=== PATIENT | female | born 1985 | race Caucasian/White ===

== ENCOUNTER 2018-04-20 15:02 | Emergency (ER) | payer SELFPAY ==
[~2018-04-20] VITALS: Ht 165.1 cm; Wt 75.0 kg
[~2018-04-20 15:02] MED LIST: BUSP10TA8 PO; KCL20 PO; LISI-363 PO; OXCA300T2 PO; PENI500T PO
[2018-04-20 15:24] VITALS: BP 141/90; PULSE 100; RESP 18; TEMP 99.5; O2SAT 100
--- NOTE | 2018-04-20 15:53 | PD ---
HPI Chief Complaint: Related Problem Time Seen by Provider: 15:53 Travel History International Travel<30 days: No Contact w/Intl Traveler<30days: No Traveled to known affect area: No History of Present Illness HPI 32-year-old female came to the emergency room with history of left adnexal pain and back pain for past couple days. Patient found out last week that she is . Her last menstrual cycle was March 17. Patient is A1. Patient also noticed some spotting. Spotting started yesterday. No aggravating or relieving factors identified for the pain. Patient is concerned about ectopic and hence came to the emergency room. Vital signs are stable. [facility] Past Medical History Narrative Medical List of her past medical, surgical, social and family history is reviewed from the nursing note. Bipolar Disorder: Yes Anxiety: Yes Depression: Yes Diminished Hearing: No Hypertension: Yes Immunizations Current: Yes ?: Menopausal: No : 3 Para: 2 Miscarriage: 1 : 0 Social History Alcohol Use: No Tobacco Use: Yes (1 PPD) Substance Use: Yes (CRACK, KLONOPIN, DILAUDID, IV DRUGS; LAST USE 05/25/2013) Allergies-Medications (Allergen,Severity, Reaction): Coded Allergies: No Known Allergies (Unverified Adverse Reaction, Unknown, 04/20/18) Comments No known drug allergies Reported Meds & Prescriptions Reported Meds & Active Scripts Active Reported Clonidine (Clonidine HCl) 0.1 Mg Tab 0.1 Mg PO TID Lisinopril 20 Mg Tab 20 Mg PO DAILY Narrative Medication List of her home medications reviewed from the nursing note Review of Systems Except as stated in HPI: all other systems reviewed are Neg Genitourinary: Positive: Pelvic Pain, Vaginal Bleeding Physical Exam Narrative GENERAL: Awake, alert, mild distress SKIN: Focused skin assessment warm/dry. HEAD: Atraumatic. Normocephalic. EYES: Pupils equal and round. No scleral icterus. No injection or drainage. ENT: No nasal bleeding or discharge. Mucous membranes pink and moist. NECK: Trachea midline. No JVD. CARDIOVASCULAR: Regular rate and rhythm. No murmur appreciated. RESPIRATORY: No accessory muscle use. Clear to auscultation. Breath sounds equal bilaterally. GASTROINTESTINAL: Abdomen soft, non-tender, nondistended. Hepatic and splenic margins not palpable. MUSCULOSKELETAL: No obvious deformities. No clubbing. No cyanosis. No edema. NEUROLOGICAL: Awake and alert. No obvious cranial nerve deficits. Motor grossly within normal limits. Normal speech. PSYCHIATRIC: Appropriate mood and affect; insight and judgment normal. Data Data Last Documented VS Orders Orders Ed Urine Pregnancytest Poc (04/20/18 16:06) [facility] Medical Decision Making Medical Screen Exam Complete: Yes Emergency Medical Condition: Yes Medical Record Reviewed: Yes Differential Diagnosis Ectopic , threatened , vaginal bleeding in early Narrative Course 5:27 PM patient was explained about the blood work that needs to be done especially beta-hCG titer to determine if an ultrasound could be done for this early to determine the location of the . I explained to the patient well and came out of the room. The nurse soon told me that patient did not want to wait for the blood test results. She wanted to leave. She was getting restless. She is in full capacity to make decisions for herself. She left AMA. Procedures EKG Prior to Arrival: No Disposition: 07 AGAINST MEDICAL ADVICE Condition: Serious Luis Miguel Guerrero MD Apr 20, 2018 15:53
[2018-04-20] MEDS ORDERED: CLON0.1T PO (15:54)
[2018-04-20] MEDS ORDERED: LISI-515 PO (15:54)
== END 2018-04-20 17:07 | disposition left against medical advice (07) ==
LOC: NEPD 15:02
DX: M54.9 Dorsalgia, unspecified (principal)
CPT/HCPCS: 84703; 99281

== ENCOUNTER 2018-10-10 15:22 | Observation (INO) ==
[2018-10-10 18:05] LABS: Baso % (Auto) 0.2 % (0.0-2.0); Eos # (Auto) 0.1 th/mm3 (0.0-0.4); Eos % (Auto) 1.1 % (0.0-4.0); Hematocrit 34.4 % (35.0-46.0); Lymph # (Auto) 2.2 th/mm3 (1.0-4.8); Lymph % (Auto) 21.6 % (9.0-44.0); Mean Corpuscular HGB Conc 34.8 % (32.0-36.0); Mean Corpuscular Hemoglobin 30.5 pg (27.0-34.0); Mean Corpuscular Volume 87.7 fL (80.0-100.0); Mean Platelet Volume 8.2 fL (7.0-11.0); Mono # (Auto) 0.5 th/mm3 (0.0-0.9); Mono % (Auto) 4.7 % (0.0-8.0); Neut # (Auto) 7.4 th/mm3 (1.8-7.7); Neut % (Auto) 72.4 % (16.0-70.0); Platelet Count 253 th/mm3 (150-450); Red Blood Count 3.92 mil/mm3 (4.00-5.30); Red Cell Distribution Width 12.9 % (11.6-17.2); White Blood Count 10.3 th/mm3 (4.0-11.0)
[2018-10-10 18:16] LABS: Protein/Creatinine Ratio,Urine 0.05 (0.00-0.14); Total Protein,Urine Random 10.7 mg/dL (0-11.8)
[2018-10-10 18:30] LABS: Benzodiazepine Urine With Conf Neg (Neg); Cocaine Urine With Conf Neg (Neg); Opiates Urine With Conf Neg (Neg)
[2018-10-10 18:31] LABS: Amphetamine Urine With Conf Neg (Neg)
[2018-10-10 18:42] LABS: Cannabinoid Urine With Conf Pos (Neg)
[2018-10-10 18:43] LABS: Albumin 2.9 g/dL (3.4-5.0); Uric Acid 2.6 mg/dl (2.6-6.0)
[2018-10-10 18:52] LABS: Beta Hydroxybutyric Acid 0.48 mmol/L (0.00-0.39); Thyroid Stimulating Hormone 0.553 uIU/mL (0.358-3.740); Total Protein 6.4 g/dL (6.4-8.2)
[2018-10-10] MEDS ORDERED: Famotidine PF Inj 20 MG/2 ML Vial IV.PUSH SCH (21:00)
[2018-10-10] MEDS ORDERED: QUEtiapine 100 MG Tablet PO PRN (21:00)
--- NOTE | 2018-10-10 21:24 | P.HPOB ---
History of Present Illness Service: antepartum Primary Care Physician: No Primary Care Physician Chief Complaint: 30 week IUP with CHLOE, nausea and vomiting History of Present Illness: 34 yo swf at 29 1/2 weeks to office with dehydration due to marked nausea, vomiting and inability to tolerate food or drink. Her BP was 150/100. This has been ongoing and chronic since first trimester. She has been using THC regularly for these symptoms and has been adviced that it is not recommended in due to unknown / effects. She has been on subutex and denies any IVDA or additional illicit siubstances. Notes movement. Has constipation. Bladder fine. Denies triggers or cravings but under severe stress due to pending eviction. She is not well enough to work. Partner is in and out of active addiciton. No leaking, bleeding or contractions. Review of Systems All other systems reviewed negative except as stated in HPI PMFSH - History History Provided By: Patient - Medical / Surgical Hx Neg / Unobtainable Medical Problems Denied: Yes - Medical History Medical History: Medical History (Last Updated 05/20/18 @ 15:41 by Griselda Casanova RN) Anxiety Depression Hypertension - Tobacco History Second Hand Smoke Exposure: Yes Smoking Status: Current every day smoker Tobacco Type: Cigarettes - Alcohol History How Often Do You Have a Drink Containing Alcohol: Never - Substance Use History Substance History: Past History - Travel History Recent Travel in the [place] Within the Last 8 Weeks: No Recent Travel Out of the Country Within the Last 8 Weeks: No - Immunization History Tetanus Immunization: Unsure Hx Influenza Vaccine This Season: No Medications and Allergies Active Medications: Active Medications Buprenorphine HCl (Buprenorphine) 8 mg SL TID [facility] Last Admin: 10/10/18 17:59 Dose: 8 mg Clonidine HCl (Catapres) 0.1 mg PO HS PRN PRN Reason: INSOMNIA Famotidine (Pepcid Pf Inj) 20 mg IV.PUSH Q12H [facility] Last Admin: 10/10/18 20:57 Dose: 20 mg Hydroxyzine Pamoate (Vistaril) 50 mg PO Q6H PRN PRN Reason: AGITATION Lactated Ringer's (Lr 1000 Ml Inj) 1,000 mls @ 125 mls/hr IV.SIG .Q8H [facility] Last Admin: 10/10/18 17:59 Dose: 125 mls/hr Metoclopramide HCl (Reglan Inj) 10 mg IV.PUSH Q8H [facility] Last Admin: 10/10/18 20:57 Dose: 10 mg Ondansetron HCl (Zofran Inj) 4 mg IV.PUSH Q6H [facility] Last Admin: 10/10/18 17:58 Dose: 4 mg Quetiapine Fumarate (Seroquel) 100 mg PO HS PRN PRN Reason: NIGHT TERRORS Allergies Allergy/AdvReac Type Severity Reaction Status Date / Time No Known Allergies Allergy Verified 10/10/18 17:29 Home Medications Medication Instructions Recorded Confirmed Type 19 1 tab PO DAILY 10/10/18 10/10/18 History buprenorphine HCl 8 mg SUBLINGUAL TID 10/10/18 10/10/18 History clonidine HCl 0.1 mg PO TID 10/10/18 10/10/18 History docusate sodium [Colace] 100 mg PO DAILY 10/10/18 10/10/18 History ondansetron [Zofran ODT] 8 mg PO TID PRN 10/10/18 10/10/18 History quetiapine [Seroquel] 100 mg PO HS 10/10/18 10/10/18 History sertraline [Zoloft] 50 mg PO DAILY 10/10/18 10/10/18 History Exam Vital signs: Vital Signs 10/10/18 17:35 10/10/18 17:45 10/10/18 18:49 Temperature Pulse Rate 78 80 Respiratory Rate 18 Blood Pressure 136/88 148/85 H 10/10/18 20:03 Temperature 98.0 F Pulse Rate 92 H Respiratory Rate 18 Blood Pressure 100/77 Intake & Output 10/10/18 10/10/18 10/11/18 06:59 18:59 06:59 Weight 180 kg - Constitutional moderate distress - Routine HEENT Exam Head: Present: normocephalic, atraumatic Eye: Present: EOMI, PERRL ENT: Present: mucous membranes dry - Routine Neck Exam Present: supple, full ROM - Routine Respiratory Exam Present: CTA bilaterally - Routine Cardiovascular Exam Present: RRR - Routine Abdominal Exam Present: soft, normoactive bowel sounds - Routine Skin Exam Present: intact, dry - Routine Neurological Exam Present: alert, oriented X3 - Additional findings Additional findings: cervix long and closed Results - Labs CBC & Chem 7: 10/10/18 17:17 Labs: Laboratory Results - last 24 hr 10/10/18 10/10/18 10/10/18 16:16 16:16 17:17 WBC 10.3 RBC 3.92 L Hgb 12.0 Hct 34.4 L MCV 87.7 MCH 30.5 MCHC 34.8 RDW 12.9 Plt Count 253 MPV 8.2 Neut % (Auto) 72.4 H Lymph % (Auto) 21.6 [place] % (Auto) 4.7 Eos % (Auto) 1.1 Baso % (Auto) 0.2 Neut # (Auto) 7.4 Lymph # (Auto) 2.2 [place] # (Auto) 0.5 Eos # (Auto) 0.1 Baso # (Auto) 0.0 WBC Differential . Differential Comment Auto diff final ESR Uric Acid Total Bilirubin Direct Bilirubin Indirect Bilirubin AST ALT Alkaline Phosphatase Total Protein Albumin Beta-Hydroxybutyric Acd TSH Ur Random Creatinine 204 U Random Total Protein 10.7 Protein/Creatinin Ratio 0.05 Urine Opiates Screen Neg Ur Barbiturates Screen Neg Ur Amphetamine Screen Neg U Benzodiazepines Scrn Neg Urine Cocaine Screen Neg U Cannabinoids Screen Pos H 10/10/18 10/10/18 17:17 17:17 WBC RBC Hgb Hct MCV MCH MCHC RDW Plt Count MPV Neut % (Auto) Lymph % (Auto) [place] % (Auto) Eos % (Auto) Baso % (Auto) Neut # (Auto) Lymph # (Auto) [place] # (Auto) Eos # (Auto) Baso # (Auto) WBC Differential Differential Comment ESR 21 H Uric Acid 2.6 Total Bilirubin 0.3 Direct Bilirubin 0.1 Indirect Bilirubin 0.2 AST 16 ALT 24 Alkaline Phosphatase 86 Total Protein 6.4 Albumin 2.9 L Beta-Hydroxybutyric Acd 0.48 H TSH 0.553 Ur Random Creatinine U Random Total Protein Protein/Creatinin Ratio Urine Opiates Screen Ur Barbiturates Screen Ur Amphetamine Screen U Benzodiazepines Scrn Urine Cocaine Screen U Cannabinoids Screen Caprini VTE Risk Assessment Caprini VTE Risk Assessment: No/Low Risk (score <= 1) Caprini Risk Assessment Model: Point Value = 1 Point Value = 2 Point Value = 3 Point Value = 5 Age 41-60 Minor surgery BMI > 25 kg/m2 Swollen legs Varicose veins or History of unexplained or recurrent spontaneous Oral contraceptives or hormone replacement Sepsis (< 1 month) Serious lung disease, including pneumonia (< 1 month) Abnormal pulmonary function Acute myocardial infarction Congestive heart failure (< 1 month) History of inflammatory bowel disease Medical patient at bed rest Age 61-74 Arthroscopic surgery Major open surgery (> 45 min) Laparoscopic surgery (> 45 min) Malignancy Confined to bed (> 72 hours) Immobilizing plaster cast Central venous access Age >= 75 History of VTE Family history of VTE Factor V Leiden Prothrombin [id number] Lupus anticoagulant Anticardiolipin antibodies Elevated serum homocysteine Heparin-induced thrombocytopenia Other congenital or acquired thrombophilia Stroke (< 1 month) Elective arthroplasty Hip, pelvis, or leg fracture Acute spinal cord injury (< 1 month) Prophylaxis Regimen: Total Risk Factor Score Risk Level Prophylaxis Regimen 0-1 Low Early ambulation 2 Moderate Order ONE of the following: *Sequential Compression Device (SCD) *Heparin 5000 units SQ BID 3-4 Higher Order ONE of the following medications: *Heparin 5000 units SQ TID *Enoxaparin/Lovenox 40 mg SQ daily (WT < 150 kg, CrCl > 30 mL/min) *Enoxaparin/Lovenox 30 mg SQ daily (WT < 150 kg, CrCl > 10-29 mL/min) *Enoxaparin/Lovenox 30 mg SQ BID (WT < 150 kg, CrCl > 30 mL/min) AND/OR *Sequential Compression Device (SCD) 5 or more Highest Order ONE of the following medications: *Heparin 5000 units SQ TID (Preferred with Epidurals) *Enoxaparin/Lovenox 40 mg SQ daily (WT < 150 kg, CrCl > 30 mL/min) *Enoxaparin/Lovenox 30 mg SQ daily (WT < 150 kg, CrCl > 10-29 mL/min) *Enoxaparin/Lovenox 30 mg SQ BID (WT < 150 kg, CrCl > 30 mL/min) AND *Sequential Compression Device (SCD) Assessment and Plan - Diagnosis (1) 29 weeks gestation of Code(s): Z3A.29 - 29 weeks gestation of Status: Acute (2) Substance use disorder Code(s): F19.90 - Other psychoactive substance use, unspecified, uncomplicated Status: Acute (3) High blood pressure Code(s): I10 - Essential (primary) hypertension Status: Acute - Plan Monitor over night full labs and 24 hour urine surveillance reevaluate in am give subutex and address GI symptoms emperically (3) High blood pressure Qualifiers: Hypertension type: other secondary hypertension Qualified Code(s): I15.8 - Other secondary hypertension
--- NOTE | 2018-10-11 05:31 | P.OBANTE ---
Subjective Interval History: 33 yo at 29 6/7 weeks admitted for dehydration from emesis and inablity to hold any fluids or solids down. Taking subutex TID. Also smoking THC for her nausea and has been counseled at each visit about risks of THC in . Risk reduction for her and this fetus justify continued subutex use despite "non compliance" with THC use. Otherwise IVDA would be expected. Difficulty with coverage of subutex from Medicaid due to THC use. Denies any other substance use. Not diverting her subutex and UDS each visit otherwise shows compliance. Under great stress with partner intermittently using opioids and eviction imminent. Yesenia has been seeing her for TCM and counseling. Initial labs showed elevated serum acetone. Pre eclamptic work up (office BP was 150/100) reassuring with normal labs and normal BPs now. Since IV meds for nausea and vomiting, has eating well with no emesis. No nausea since initially at admission. No leaking, bleeding. GFM No UCs Objective Vital Signs and I&O: Vital Signs 10/10/18 17:35 10/10/18 17:45 10/10/18 18:49 Temperature Pulse Rate 78 80 Respiratory Rate 18 Blood Pressure 136/88 148/85 H 10/10/18 20:03 10/10/18 23:10 10/11/18 03:40 Temperature 98.0 F 97.9 F 98.8 F Pulse Rate 92 H 71 71 Respiratory Rate 18 18 18 Blood Pressure 100/77 134/88 107/74 Intake & Output 10/10/18 10/10/18 10/11/18 06:59 18:59 06:59 Intake Total 1000 / 1000 Balance 1000 / 1000 Weight 180 kg Intake: IV 1000 / 1000 LR 1000 mL Inj 1,000 ML @ 125 1000 / 1000 mls/hr IV.SIG .Q8H [facility] Rx#: [id number] Lab and Micro Results: Laboratory Results - last 24 hr 10/10/18 10/10/18 10/10/18 16:16 16:16 17:17 WBC 10.3 RBC 3.92 L Hgb 12.0 Hct 34.4 L MCV 87.7 MCH 30.5 MCHC 34.8 RDW 12.9 Plt Count 253 MPV 8.2 Neut % (Auto) 72.4 H Lymph % (Auto) 21.6 [place] % (Auto) 4.7 Eos % (Auto) 1.1 Baso % (Auto) 0.2 Neut # (Auto) 7.4 Lymph # (Auto) 2.2 [place] # (Auto) 0.5 Eos # (Auto) 0.1 Baso # (Auto) 0.0 WBC Differential . Differential Comment Auto diff final ESR Uric Acid Total Bilirubin Direct Bilirubin Indirect Bilirubin AST ALT Alkaline Phosphatase Total Protein Albumin Beta-Hydroxybutyric Acd TSH Ur Random Creatinine 204 U Random Total Protein 10.7 Protein/Creatinin Ratio 0.05 Urine Opiates Screen Neg Ur Barbiturates Screen Neg Ur Amphetamine Screen Neg U Benzodiazepines Scrn Neg Urine Cocaine Screen Neg U Cannabinoids Screen Pos H 10/10/18 10/10/18 17:17 17:17 WBC RBC Hgb Hct MCV MCH MCHC RDW Plt Count MPV Neut % (Auto) Lymph % (Auto) [place] % (Auto) Eos % (Auto) Baso % (Auto) Neut # (Auto) Lymph # (Auto) [place] # (Auto) Eos # (Auto) Baso # (Auto) WBC Differential Differential Comment ESR 21 H Uric Acid 2.6 Total Bilirubin 0.3 Direct Bilirubin 0.1 Indirect Bilirubin 0.2 AST 16 ALT 24 Alkaline Phosphatase 86 Total Protein 6.4 Albumin 2.9 L Beta-Hydroxybutyric Acd 0.48 H TSH 0.553 Ur Random Creatinine U Random Total Protein Protein/Creatinin Ratio Urine Opiates Screen Ur Barbiturates Screen Ur Amphetamine Screen U Benzodiazepines Scrn Urine Cocaine Screen U Cannabinoids Screen Physical Exam: GENERAL: Well-nourished, well-developed patient. CARDIOVASCULAR: Regular rate and rhythm without murmurs, gallops, or rubs. RESPIRATORY: Breath sounds equal bilaterally. No accessory muscle use. ABDOMEN/GI: Abdomen soft, non-tender. Fundus: 30 cm GENITOURINARY: External Genitalia: intact and normal in appearance cervix 50/fit/soft/-2 Strip reassuring with accels and good BTBV no decels EXTREMITIES: No cyanosis or edema, non-tender, without signs of DVT. Assessment and Plan - Diagnosis (1) 29 weeks gestation of Code(s): Z3A.29 - 29 weeks gestation of Status: Acute (2) Substance use disorder Code(s): F19.90 - Other psychoactive substance use, unspecified, uncomplicated Status: Acute (3) High blood pressure Code(s): I10 - Essential (primary) hypertension Status: Acute (4) Dehydration Code(s): E86.0 - Dehydration Status: Acute - Plan Monitor over night full labs and 24 hour urine surveillance reevaluate in am give subutex and address GI symptoms emperically 10/11/18 0530 Dehydration and nausea addressed stress and social situation problematic--needs stable living conditions in order to maintain recovery from opioids (on MAT) needs to stop THC, now that nausea and vomiting cycle resolved. needs rhogam and glucola today needs case management to assist with TCM with chrysalis and healthy start. will meet criteria for discharge on wednesday (3) High blood pressure Qualifiers: Hypertension type: other secondary hypertension Qualified Code(s): I15.8 - Other secondary hypertension
[2018-10-11] MEDS: Famotidine 20 MG Tablet PO SCH ×2 (08:49→21:03)
[2018-10-11 08:54] VITALS: BP 132/77; PULSE 75
[2018-10-11 14:25] VITALS: TEMP 97.9
[2018-10-11 15:57] VITALS: RESP 16
--- NOTE | 2018-10-11 18:10 | P.OBANTE ---
Subjective Interval History: Had quiet day with no vomiting tolerating change to oral medication we have been able to get her prior authorization for subutex reinstated even though she is positive for THC she is aware surveillance reassuring home on meds. Objective Vital Signs and I&O: Vital Signs 10/10/18 18:49 10/10/18 20:03 10/10/18 23:10 Temperature 98.0 F 97.9 F Pulse Rate 80 92 H 71 Respiratory Rate 18 18 Blood Pressure 148/85 H 100/77 134/88 10/11/18 03:40 10/11/18 08:53 10/11/18 09:00 Temperature 98.8 F Pulse Rate 71 75 Respiratory Rate 18 17 Blood Pressure 107/74 132/77 10/11/18 10:00 10/11/18 14:24 10/11/18 14:26 Temperature 98.7 F 97.9 F Pulse Rate Respiratory Rate 18 Blood Pressure 10/11/18 15:56 Temperature Pulse Rate Respiratory Rate 16 Blood Pressure Intake & Output 10/10/18 10/11/18 10/11/18 18:59 06:59 18:59 Intake Total 1999 Balance 1999 Weight 180 kg Intake: IV 1999 LR 1000 mL Inj 1,000 ML @ 125 1999 mls/hr IV.SIG .Q8H [facility] Rx#: [id number] Intake (Blood Product) Amt Rho(D) Immune Globulin Unit [id number] Lab and Micro Results: Laboratory Results - last 24 hr 10/10/18 10/10/18 10/10/18 16:16 16:16 17:17 ESR 21 H Uric Acid Total Bilirubin Direct Bilirubin Indirect Bilirubin AST ALT Alkaline Phosphatase Total Protein Albumin Beta-Hydroxybutyric Acd TSH Ur Random Creatinine 204 U Random Total Protein 10.7 Protein/Creatinin Ratio 0.05 Urine Opiates Screen Neg Ur Barbiturates Screen Neg Ur Amphetamine Screen Neg U Benzodiazepines Scrn Neg Urine Cocaine Screen Neg U Cannabinoids Screen Pos H Blood Type Ab Screen Tube Method Blood Bank Comment 10/10/18 10/11/18 17:17 07:51 ESR Uric Acid 2.6 Total Bilirubin 0.3 Direct Bilirubin 0.1 Indirect Bilirubin 0.2 AST 16 ALT 24 Alkaline Phosphatase 86 Total Protein 6.4 Albumin 2.9 L Beta-Hydroxybutyric Acd 0.48 H TSH 0.553 Ur Random Creatinine U Random Total Protein Protein/Creatinin Ratio Urine Opiates Screen Ur Barbiturates Screen Ur Amphetamine Screen U Benzodiazepines Scrn Urine Cocaine Screen U Cannabinoids Screen Blood Type O Negative Ab Screen Tube Method Negative Blood Bank Comment Physical Exam: GENERAL: Well-nourished, well-developed patient. CARDIOVASCULAR: Regular rate and rhythm without murmurs, gallops, or rubs. RESPIRATORY: Breath sounds equal bilaterally. No accessory muscle use. ABDOMEN/GI: Abdomen soft, non-tender. Fundus: [-] GENITOURINARY: External Genitalia: intact and normal in appearance Cervix: [-] Dilatation: [-] Effacement: [-] Station: [-] Presentation: [-] Membranes: [-] Uterine Contractions: [-] FHT's: Category: [-] Baseline: [-] Reactive: [-] Variability: [-] Decels: [-] EXTREMITIES: No cyanosis or edema, non-tender, without signs of DVT. Assessment and Plan - Diagnosis (1) 29 weeks gestation of Code(s): Z3A.29 - 29 weeks gestation of Status: Acute (2) Substance use disorder Code(s): F19.90 - Other psychoactive substance use, unspecified, uncomplicated Status: Acute (3) High blood pressure Code(s): I10 - Essential (primary) hypertension Status: Acute (4) Dehydration Code(s): E86.0 - Dehydration Status: Acute - Plan Monitor over night full labs and 24 hour urine surveillance reevaluate in am give subutex and address GI symptoms emperically 10/11/18 0530 Dehydration and nausea addressed stress and social situation problematic--needs stable living conditions in order to maintain recovery from opioids (on MAT) needs to stop THC, now that nausea and vomiting cycle resolved. needs rhogam and glucola today needs case management to assist with TCM with chrysalis and healthy start. will meet criteria for discharge on wednesday (3) High blood pressure Qualifiers: Hypertension type: other secondary hypertension Qualified Code(s): I15.8 - Other secondary hypertension
[2018-10-11] MEDS ORDERED: metroNIDAZOLE 500 MG Tablet PO SCH (21:00)
== END 2018-10-11 21:10 | disposition home or self-care (01) ==
LOC: H2E 15:22 → NED 15:22 → H2E 21:28
PROVIDERS: ADMIT Obstetrics & Gynecology; ATTEND Obstetrics & Gynecology
DX: O99.323 Drug use complicating pregnancy, third trimester; F41.9 Anxiety disorder, unspecified; K59.00 Constipation, unspecified; O99.283 Endocrine, nutritional and metabolic diseases complicating pregnancy, third trimester; Z91.19 Patient's noncompliance with other medical treatment and regimen; F32.9 Major depressive disorder, single episode, unspecified; F12.90 Cannabis use, unspecified, uncomplicated; O21.2 Late vomiting of pregnancy; Z3A.29 29 weeks gestation of pregnancy; O16.3 Unspecified maternal hypertension, third trimester; O99.613 Diseases of the digestive system complicating pregnancy, third trimester; F17.210 Nicotine dependence, cigarettes, uncomplicated; E86.0 Dehydration